=== PATIENT | female | born 1965 | race Caucasian/White ===

== ENCOUNTER → 2021-03-06 | Day surgery (SDC) | payer OTHER ==
[~2021-03-06] VITALS: Ht 154.9 cm; Wt 90.9 kg
[~2021-03-06] MED LIST: ACETAMINOPHEN 1000 MG/ISO-OSM 100 ML IV ONE; ACETAMINOPHEN/ISO-OSM 1000 MG/100 ML BOTTLE IV ONE; BUPIVACAINE 0.25%/EPI 1:200,000/PF 10 ML VIAL ONE; CeFAZolin 2 GM/DEXTROSE 0 ML IV ONE; CeFAZolin 2 GM/DEXTROSE 50 ML IV ONE; DEXAMETHASONE SOD PHOS 4 MG/ML VIAL IVP ONE; FentaNYL CITRATE PF 100 MCG/2 ML VIAL IM ONE; FentaNYL CITRATE PF 100 MCG/2 ML VIAL IVP ONE; FentaNYL CITRATE PF 100 MCG/2 ML VIAL IVP PRN; HYDROmorphone 2 MG/ML VIAL IVP PRN; IOHEXOL 240 MG/ML 20 ML VIAL ONE; KETOROLAC TROMETHAMINE 30 MG/ML VIAL IVP ONE; KETOROLAC TROMETHAMINE 30 MG/ML VIAL ONE; LIDOCAINE/PF 2% 5 ML SYRINGE IVP ONE; METOCLOPRAMIDE HCL 5 MG/ML 2 ML VIAL IVP ONE; MIDAZOLAM HCL 2 MG/2 ML VIAL IVP ONE; ONDANSETRON HCL 4 MG/2 ML VIAL IVP ONE; OXYGEN THERAPY IH SCH; PROPOFOL 1% 20 ML VIAL IVP ONE; RINGERS SOLUTION,LACTATED 1,000 ML IV ONE; ROCURONIUM BROMIDE 10 MG/ML 5 ML VIAL IVP ONE; SUGAMMADEX SODIUM 200 MG/2 ML VIAL IVP ONE
[2021-03-06 14:18] LABS: COVID AG,FIA SOURCE NASOPHARYNGEAL
== END | disposition home or self-care (01) ==
LOC: SURGERY 10:12
PROVIDERS: ATTEND Orthopaedic Surgery Orthopaedic Surgery of the Spine
DX: M48.54XA Collapsed vertebra, not elsewhere classified, thoracic region, initial encounter for fracture (principal); I10 Essential (primary) hypertension; Z79.899 Other long term (current) drug therapy; Z98.890 Other specified postprocedural states
CPT/HCPCS: 22513; 87426; A9575; C1713; C9803; J0131; J0690 ×2; J1100; J1885; J2250; J2405; J2704; J2765; J3010; J3490 ×3; J7120; Q9966